=== PATIENT | male | born 1965 | race Two or more races ===

== ENCOUNTER 2023-03-24 20:26 | Emergency (ER) | payer SELFPAY ==
[~2023-03-24] VITALS: Ht 170.2 cm; Wt 109.5 kg
[2023-03-24 20:31] VITALS: TEMP 99.4
[2023-03-24 20:46] VITALS: BP 132/95; PULSE 106; RESP 18
[2023-03-24] MEDS ORDERED: SULFAMETHOX/TRIMETH DS 800-160 MG/TABLET PO ONE (22:15)
[2023-03-24] MEDS ORDERED: CEPHALEXIN MONOHYDRATE 500 MG CAPSULE PO ONE (22:15)
[2023-03-24] MEDS ORDERED: CEPH-558 PO (22:25)
[2023-03-24] MEDS ORDERED: SULF-261 PO (22:25)
== END 2023-03-24 22:32 | disposition home or self-care (01) ==
LOC: EMS 20:26
DX: L03.115 Cellulitis of right lower limb (principal)
CPT/HCPCS: 82962; 99283